=== PATIENT | female | born 1995 | race African-American/Black ===

== ENCOUNTER 2016-11-17 15:31 | Emergency (ER) | payer BC, MEDICAID, OTHER ==
[2016-11-17] MEDS ORDERED: IOPAMIDOL-300 100 ML VIAL IVP ONE (17:00)
== END 2016-11-17 18:35 | disposition home or self-care (01) ==
DX: K92.1 Melena (principal); D50.9 Iron deficiency anemia, unspecified; Q61.01 Congenital single renal cyst; R63.4 Abnormal weight loss; F31.9 Bipolar disorder, unspecified
CPT/HCPCS: 36415; 74177; 80053; 80178; 81001; 81025; 83690; 85025; 99283; Q9967

== ENCOUNTER 2016-11-18 10:30 | Emergency (ER) | END 2016-11-18 12:22 | disposition home or self-care (01) | CPT/HCPCS: 36415; 85018; 99283; 99284; A9270; Q0162 ==